=== PATIENT | male | born 2000 | race Caucasian/White ===

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

== ENCOUNTER 2021-11-01 18:25 | Emergency (ER) | payer OTHER, SELFPAY ==
[2021-11-01 18:38] VITALS: BP 100/68; PULSE 112; RESP 17; TEMP 37.1; O2SAT 99
--- NOTE | 2021-11-01 21:14 | ED.DENTAL ---
HPI - Dental/Oral General Chief complaint: Dental/Oral Stated complaint: TOOTHACHE Time Seen by Provider: 11/01/21 20:33 Source: patient Mode of arrival: ambulatory Limitations: no limitations History of Present Illness HPI Narrative: Patient is a 21-year-old male who presents the ED with report of left lower molar dental pain. Patient reports the corner of his L lower molar broke over 1 year ago. He has been having issues with pain and temperature sensitivity since then. Over the last 3 weeks, the pain has become worse. He has been taking ibuprofen at home without much relief. He does have an appointment with a dentist who accepts Medicaid on November 18, 2021. He states the pain became worse tonight which prompted him to come to the ED. He also reports having pain and swelling along left lower gumline. No fever, chills, nausea, vomiting. Related Data Allergies Allergy/AdvReac Type Severity Reaction Status Date / Time No Known Allergies Allergy Verified 11/01/21 18:41 Review of Systems Review of Systems: CONSTITUTIONAL: Denies fever, chills. ENT: Reports dentalgia, temperature sensitivity, gumline pain/swelling. Denies sore throat. GASTROINTESTINAL: Denies nausea, vomiting. All systems reviewed & are unremarkable except as noted in HPI and below PMFSH Past Medical History Medical History No pertinent past medical history Surgical History Surgical History (Updated 11/01/21 @ 21:22 by Felisa Eason PA-C) No pertinent past surgical history Social History Social History (Updated 11/02/21 @ 03:24 by Felisa Eason PA-C) Smoking status: Current every day smoker Exam Narrative: Yeah GENERAL: Well appearing, well-nourished, non-toxic, in no acute distress. HEAD: Normocephalic, atraumatic. THROAT: Pharynx clear, no exudate. MMs moist. Scattered dental caries throughout mouth. Corner of left lower molar, #37, fractured. Mild erythema, TTP, and swelling along left lower gumline. No significant abscess identified. NECK: Supple. No adenopathy, no masses. RESPIRATORY: Airway patent, respirations nonlabored. Clear to auscultation bilaterally, no rales, rhonchi, wheezing. CARDIOVASCULAR: Regular rate and rhythm without murmurs, rubs, or gallops. Radial pulses 2+ and equal bilaterally. MUSCULOSKELETAL: Moves all extremities. Strength/ROM intact without gross deformities. SKIN: Warm, dry, normal color. No rashes. NEURO: A&O X3. Speech clear. Cranial nerves II-XII grossly intact. Steady gait. No ataxic movements. PSYCHIATRIC: Appropriate mood and affect. Normal interaction. Course Vital Signs Vital signs: Vital Signs Temperature 98.7 F 11/01/21 18:38 Pulse Rate 112 H 11/01/21 18:38 Respiratory Rate 17 11/01/21 18:38 Blood Pressure 100/68 11/01/21 18:38 Pulse Oximetry 99 11/01/21 18:38 Temperature 98.7 F 11/01/21 18:38 Pulse Rate 93 11/01/21 21:44 Respiratory Rate 18 11/01/21 21:44 Blood Pressure 117/89 11/01/21 21:44 Pulse Oximetry 100 11/01/21 21:44 MDM - Dental/Oral MDM Narrative Medical decision making narrative: Patient presented to ED with dentalgia. VSS upon arrival, patient slightly tachycardic, likely due to pain. Afebrile. Patient's pain is consistent with dental caries and fractured tooth. There is mild erythema, swelling, and tenderness to palpation of left lower outer gumline, but there is no focal signs of space-occupying abscess to suggest need for imaging. The patient is controlling secretions well without signs of airway compromise. Patient is felt reasonable for outpatient follow-up with dental evaluation. I will send antibiotics to patient's pharmacy due to focal inflammation of L lower outer gumline. I will also send a few [place] for pain. Given a shot of Toradol in the ED as he has to drive home. He has an appointment with a dentist the next few weeks. Advised him to keep this appointment to have tooth pulled. I al
[2021-11-01] MEDS: KETOROLAC (*BKC) 60 MG/2 ML VIAL IM (21:29)
[2021-11-01 21:44] VITALS: BP 117/89; PULSE 93; RESP 18; O2SAT 100
== END 2021-11-01 21:38 | disposition home or self-care (01) ==
PROVIDERS: Emergency Provider General Practice
DX: K08.89 Other specified disorders of teeth and supporting structures (principal); K03.81 Cracked tooth; F17.210 Nicotine dependence, cigarettes, uncomplicated
CPT/HCPCS: 96372; 99283; J1885

== ENCOUNTER 2022-02-14 22:20 | Emergency (ER) | payer OTHER, SELFPAY ==
--- NOTE | ~2022-02-14 | XR_ITS ---
EXAMINATION: XR shoulder RT min 2V DATE: 02/14/2022 23:44 INDICATION: Right shoulder pain. Shoulder dislocation status post reduction. TECHNIQUE: 4 views of right shoulder were obtained. COMPARISON: None. FINDINGS: Bone alignment is normal. No fracture. Joint spaces are normal. IMPRESSION: 1. Normal right shoulder. Reviewed, dictated and finalized at location A. IMPRESSION: 1. Normal right shoulder.
[2022-02-14 22:22] VITALS: BP 124/78; PULSE 118; RESP 20; TEMP 36.9; O2SAT 99
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
[2022-02-14] MEDS: HYDROcodone/acetaminophen (*CRX) 5-325 MG TABLET 1 TAB PO (23:50)
--- NOTE | 2022-02-15 00:02 | PC.NURSE ---
pt declined tdap shot and sling at discharge.
== END 2022-02-15 00:06 | disposition home or self-care (01) ==
PROVIDERS: Emergency Provider Emergency Medicine
DX: S43.004A Unspecified dislocation of right shoulder joint, initial encounter (principal); Y04.0XXA Assault by unarmed brawl or fight, initial encounter; F17.210 Nicotine dependence, cigarettes, uncomplicated
CPT/HCPCS: 23650; 73030; 99285; A9270

== ENCOUNTER 2022-04-19 13:14 | Emergency (ER) | payer OTHER, SELFPAY ==
[2022-04-19 13:18] VITALS: BP 116/72; PULSE 100; RESP 16; TEMP 37.2; O2SAT 100
[2022-04-19 14:12] LABS: Influenza A QL RT-PCR Positive (Negative); Influenza B QL RT-PCR Negative (Negative); SARS-CoV-2 RNA PCR Negative
[2022-04-19] MEDS: ONDANSETRON INJ 4 MG/2 ML VIAL IV PUSH (14:27)
[2022-04-19] MEDS: KETOROLAC 30 MG/ML VIAL (*BKC) IV PUSH (14:27)
[2022-04-19] MEDS: SODIUM CHLORIDE 0.9% IV 1,000 ML 999 ML IV CONT (14:27)
--- NOTE | 2022-04-19 14:35 | ED.URI ---
HPI - URI/Sore Throat General Chief Complaint: Upper Respiratory Infection Stated Complaint: cough with fever that began yesterday Time Seen by Provider: 04/19/22 13:58 Source: patient Mode of arrival: ambulatory Limitations: no limitations History of Present Illness HPI Narrative: Patient is a 21 y/o male who presents to the ED with c/o upper respiratory symptoms. Patient reports he suddenly began feeling unwell around 3 AM this morning. He checked his temperature to be 101 ?F at that time. He also reports having cough, congestion, sore throat, muscle aches, headache, nausea, vomiting. Denies any recent sick contacts that he is aware of. He is not vaccinated for COVID or flu. He took ibuprofen at home approximately 6 hours ago. Denies abdominal pain, chest pain, difficulty breathing. Related Data Allergies Allergy/AdvReac Type Severity Reaction Status Date / Time No Known Allergies Allergy Verified 04/19/22 13:15 Review of Systems Review of Systems: CONSTITUTIONAL: Reports fever, chills, sweats. ENT: Reports rhinorrhea, congestion, sore throat. CARDIOVASCULAR: Denies chest pain. RESPIRATORY: Reports cough. Denies dyspnea. GASTROINTESTINAL: Reports nausea, vomiting. Denies abdominal pain or diarrhea. MUSCULOSKELETAL: Reports myalgias. NEUROLOGIC: Reports MEDRANO. All systems reviewed & are unremarkable except as noted in HPI and below PMFSH Past Medical History Medical History No pertinent past medical history Surgical History Surgical History No pertinent past surgical history Social History Social History Smoking status: Current every day smoker Exam Narrative: GENERAL: Mildly ill appearing, thin, in no acute distress. HEAD: Normocephalic, atraumatic. ENT: PERRLA, EOMI, conjunctiva clear, normal nose, no drainage, mild posterior pharynx erythema, no tonsillar hypertrophy or exudate, uvula midline. NECK: Supple. No adenopathy, no masses. RESPIRATORY: Airway patent, respirations nonlabored. Clear to auscultation bilaterally, no rales, rhonchi, wheezing. CARDIOVASCULAR: Borderline tachycardic with regular rhythm without murmurs, rubs, or gallops. Radial pulses 2+ and equal bilaterally. ABDOMINAL: Soft, nontender, nondistended, no hepatosplenomegaly. Normoactive BS. MUSCULOSKELETAL: Moves all extremities. Strength/ROM intact without gross deformities. SKIN: Warm, dry, mild pallor. No rashes. NEURO: A&O X3. Speech clear. Cranial nerves II-XII grossly intact. Steady gait. No ataxic movements. PSYCHIATRIC: Appropriate mood and affect. Normal interaction. Course Vital Signs Vital signs: Vital Signs Temperature 99 F 04/19/22 13:18 Pulse Rate 100 04/19/22 13:18 Respiratory Rate 16 04/19/22 13:18 Blood Pressure 116/72 04/19/22 13:18 Pulse Oximetry 100 04/19/22 13:18 Oxygen Delivery Room Air 04/19/22 13:18 Temperature 99 F 04/19/22 13:18 Pulse Rate 95 04/19/22 15:24 Respiratory Rate 14 04/19/22 15:24 Blood Pressure 115/70 04/19/22 15:24 Pulse Oximetry 98 04/19/22 15:24 Oxygen Delivery Room Air 04/19/22 13:18 MDM - URI/Sore Throat MDM Narrative Medical decision making narrative: Patient presented to ED with 1 day history of URI symptoms. Patient borderline tachycardic and febrile upon arrival. Appears mildly ill, but nontoxic. No chest pain, difficulty breathing, abdominal pain. Lungs clear on exam. Influenza A testing positive. COVID-negative. Patient feeling much better after fluids, Tylenol, Toradol in the ED. Will be discharged. Discussed management of influenza at home and reasons to return. Patient agrees with plan. Medical Records Attestation: I reviewed the patient's medical records. Lab Data Attestation: I reviewed the patient's lab results. Labs: Lab Results
[2022-04-19 15:24] VITALS: BP 115/70; PULSE 95; RESP 14; O2SAT 98
== END 2022-04-19 15:26 | disposition home or self-care (01) ==
PROVIDERS: Emergency Medicine; Emergency Provider Emergency Medicine
DX: J10.1 Influenza due to other identified influenza virus with other respiratory manifestations (principal); Z20.822 Contact with and (suspected) exposure to COVID-19; Z28.310 Unvaccinated for COVID-19
CPT/HCPCS: 87502; 96361; 96374; 96375; 99284; J0131; J1885; J2405; J7030; U0003; U0005

== ENCOUNTER 2022-04-19 16:17 | Emergency (ER) | payer OTHER, SELFPAY ==
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
[2022-04-19 16:25] VITALS: BP 117/67; PULSE 66; RESP 16; TEMP 37.3; O2SAT 100
== END 2022-04-19 17:20 | disposition home or self-care (01) ==
PROVIDERS: Emergency Provider Nurse Practitioner
DX: M54.50 Low back pain, unspecified (principal); F17.200 Nicotine dependence, unspecified, uncomplicated; V89.2XXA Person injured in unspecified motor-vehicle accident, traffic, initial encounter
CPT/HCPCS: 72100; 99213; G0463

== ENCOUNTER 2022-11-17 09:10 | Emergency (ER) | payer OTHER, SELFPAY ==
--- NOTE | 2022-11-17 09:25 | ED.DENTAL ---
HPI - Dental/Oral General Chief complaint: Dental/Oral Stated complaint: tooth pain Time Seen by Provider: 11/17/22 09:48 Source: patient, RN notes reviewed and old records reviewed Mode of arrival: ambulatory Limitations: no limitations History of Present Illness HPI Narrative: 22-year-old male presents to the [facility] with complaints dental pain to the right lower. Cracked his tooth about 6 months ago. Has had intermittent Patient states that he has an appointment in December with a dentist for removal of the tooth Related Data Home Medications Medication Instructions Recorded Confirmed sertraline 50 mg tablet 50 mg DAILY 04/19/22 11/17/22 Allergies Allergy/AdvReac Type Severity Reaction Status Date / Time cat dander Allergy Unknown Verified 11/17/22 09:42 Review of Systems Review of Systems: All systems reviewed & are unremarkable except as noted in HPI and below Constitutional: Constitutional: Reports no additional constitutional complaints Eyes: Eyes: Reports no additional eye complaints ENT: Reports as per HPI and Reports dental pain Cardiovascular: Cardiovascular: Reports no additional cardiovascular complaints, Denies chest pain and Denies dyspnea Respiratory: Respiratory: Reports no additional respiratory complaints, Denies chest congestion, Denies cough and Denies dyspnea Gastrointestinal: Gastrointestinal: Reports no additional gastrointestinal complaints, Denies abdominal pain, Denies nausea and Denies vomiting Musculoskeletal: Musculoskeletal: Reports no additional musculoskeletal complaints Integumentary/Breasts: Skin/Breast: Reports system reviewed and no additional complaints, except as docu Neurologic: Reports system reviewed and no additional complaints, except as documented Psychiatric: Psychiatric: Reports no additional psychiatric complaints Allergic/Immunologic: Allergic/Immunologic: Reports no additional allergic/immunologic complaints PMFSH Past Medical History Medical History No pertinent past medical history Surgical History Surgical History No pertinent past surgical history Social History Social History Smoking status: Current every day smoker Living arrangements: with family Comments At the time of my signature, I reviewed and agree with the nursing past medical, surgical, social, and family history. There is no relevant family history pertinent to the patient complaint. Exam Const: General: cooperative, healthy appearing, comfortable, no acute distress, well developed, alert and well nourished Nutritional Appearance: well nourished Orientation/consciousness: patient oriented x3 Limitations: no limitations HENMT: Head: normal to inspection Ears: hearing grossly normal bilaterally and external ears normal Face/Nose/Sinus: Normal external nose present, Normal nares present, Normal nasal mucous membranes and turbinates present and normal facial exam Face and sinus: normal facial exam Mouth: Yes Normal oral and palatal mucosa present, Yes lip normal and Yes moist mucous membranes Teeth image: 1. Decayed, caries, fractured tooth Throat: posterior oropharynx normal and uvula midline Eyes: General: appearance normal, both eyes and all related structures Alignment and Position: alignment normal Periorbital: periorbital findings normal Pupils: Equal, round and reactive pupils present EOM: EOMs intact bilaterally Neck: Neck: normal visual inspection, full ROM, no lymphadenopathy and no meningeal signs Chest: Chest palpation & inspection: normal inspection of the chest Resp: Effort & Inspection: normal respiratory effort and able to speak in complete sentences Cardio: Rate: regular rate Rhythm: regular rhythm Back/Spine/Pelvis: Cervical Spine: cervical ROM normal Thoracic/Lumbar Spine: No thor
[2022-11-17 09:41] VITALS: BP 119/62; PULSE 73; RESP 18; TEMP 36.9; O2SAT 100
== END 2022-11-17 10:08 | disposition home or self-care (01) ==
PROVIDERS: Emergency Provider Nurse Practitioner
DX: K02.9 Dental caries, unspecified (principal); K08.89 Other specified disorders of teeth and supporting structures; F17.200 Nicotine dependence, unspecified, uncomplicated
CPT/HCPCS: 99213; G0463

== ENCOUNTER 2023-04-30 16:52 | Emergency (ER) | payer OTHER, SELFPAY ==
[2023-04-30 16:57] VITALS: BP 116/66; PULSE 114; RESP 20; TEMP 37.4; O2SAT 99
[2023-04-30] MEDS: IBUPROFEN 600 MG TABLET PO (17:21)
--- NOTE | 2023-04-30 17:30 | ED.FEVER ---
HPI - Fever General Chief Complaint: Fever Stated Complaint: sore throat Time Seen by Provider: 04/30/23 16:59 Source: patient Mode of arrival: ambulatory Limitations: no limitations History of Present Illness HPI Narrative: Patient is a 22 y/o male who presents to the ED with his S.O. with report of URI sx's. Patient reports symptoms began last night. He complains of sore throat, cough, rhinorrhea, congestion, heavy breathing, subjective fevers, myalgias. He took Ibuprofen for his sx's last night, which did help. Significant other has similar symptoms. Denies SOB, CP. Related Data Allergies Allergy/AdvReac Type Severity Reaction Status Date / Time cat dander Allergy Unknown Verified 04/30/23 16:58 Review of Systems Review of Systems: CONSTITUTIONAL: See HPI. ENT: See HPI. CARDIOVASCULAR: Denies chest pain, palpitations, or edema. RESPIRATORY: Denies cough or dyspnea. GASTROINTESTINAL: Denies abdominal pain, nausea, vomiting. MUSCULOSKELETAL: See HPI. NEUROLOGIC: Denies headache, numbness, or weakness. All systems reviewed & are unremarkable except as noted in HPI and below PMFSH Past Medical History Medical History No pertinent past medical history Surgical History Surgical History No pertinent past surgical history Social History Social History Smoking status: Current every day smoker Living arrangements: with family Exam Narrative: GENERAL: Well appearing, thin, non-toxic, in no acute distress. HEAD: Normocephalic, atraumatic. ENT: Mild posterior pharynx erythema. No tonsillar hypertrophy or exudate. Uvula midline. No stridor. NECK: Supple. No adenopathy, no masses. RESPIRATORY: Airway patent, respirations nonlabored. Clear to auscultation bilaterally, no rales, rhonchi, wheezing. No focal lung sounds. CARDIOVASCULAR: Regular rate and rhythm without murmurs, rubs, or gallops. Radial pulses 2+ and equal bilaterally. MUSCULOSKELETAL: Moves all extremities. No gross deformities. SKIN: Warm, dry, normal color. No rashes. NEURO: A&O X3. Speech clear. Cranial nerves II-XII grossly intact. Steady gait. No ataxic movements. PSYCHIATRIC: Appropriate mood and affect. Normal interaction. Course Vital Signs Vital signs: Vital Signs Temperature 99.4 F 04/30/23 16:57 Pulse Rate 114 H 04/30/23 16:57 Respiratory Rate 20 04/30/23 16:57 Blood Pressure 116/66 04/30/23 16:57 Pulse Oximetry 99 04/30/23 16:57 Temperature 99.4 F 04/30/23 16:57 Pulse Rate 114 H 04/30/23 16:57 Respiratory Rate 20 04/30/23 16:57 Blood Pressure 116/66 04/30/23 16:57 Pulse Oximetry 99 04/30/23 16:57 MDM - Fever MDM Narrative Medical decision making narrative: Patient presented to ED with 1 day history of URI symptoms, significant other with similar symptoms also present in the ED to be seen. Vitals stable upon arrival. Borderline febrile. Given ibuprofen. Patient in no acute distress. COVID, influenza, strep negative. Patient updated on laboratory findings. Discussed likelihood of a viral URI, potentially retesting for COVID in the next couple of days. Discussed management of URI. Discussed return precautions. Discharged in stable condition. Medical Records Attestation: I reviewed the patient's medical records. Lab Data Attestation: I reviewed the patient's lab results. Labs: Lab Results 04/30/23 Range/Units 17:17 Influenza A (RT-PCR) Negative (Negative) Influenza B (RT-PCR) Negative (Negative) SARS-CoV-2 RNA (RT-PCR) Negative (Negative) Group A Strep (PCR) Not detected (Negative) Discharge Plan Discharge Clinical Impression: Upper respiratory infection Qualifiers: URI type: unspecified URI Qualified Code(s): J06.9 - Acute upper respiratory infection, unsp
[2023-04-30 17:56] LABS: Strep Group A RT-PCR NOT DETECTED (Negative)
[2023-04-30 18:04] LABS: Influenza A QL RT-PCR Negative (Negative); Influenza B QL RT-PCR Negative (Negative); SARS-CoV-2 RNA PCR Negative (Negative)
== END 2023-04-30 18:38 | disposition home or self-care (01) ==
PROVIDERS: Emergency Provider Physician Assistant
DX: J06.9 Acute upper respiratory infection, unspecified (principal); Z20.822 Contact with and (suspected) exposure to COVID-19; F17.200 Nicotine dependence, unspecified, uncomplicated
CPT/HCPCS: 87636; 87651; 99283; A9270

== ENCOUNTER 2024-05-14 19:44 | Emergency (ER) | payer SELFPAY ==
[2024-05-14 20:02] VITALS: BP 117/65; PULSE 82; RESP 20; TEMP 37.1; O2SAT 100
--- NOTE | 2024-05-14 20:08 | ED_ITS ---
HPI - URI/Sore Throat General Chief Complaint: Upper Respiratory Infection Stated Complaint: sore throat Time Seen by Provider: 05/14/24 20:08 Source: patient Mode of arrival: ambulatory Limitations: no limitations History of Present Illness HPI Narrative: 23-year-old male presents with complaint of nasal congestion, cough, sore throat, fatigue since yesterday evening. Reports chills and body aches. Has not checked for fever. patient states I think I have flu or strep . No chest pain or shortness of breath. All systems reviewed and negative except as noted above. Related Data Allergies Allergy/AdvReac Type Severity Reaction Status Date / Time cat dander Allergy Unknown Verified 04/30/23 16:58 Review of Systems Review of Systems: CONSTITUTIONAL: Denies fever, chills, or sweats. EYES: Denies visual changes, redness, or discharge. ENT: Reports rhinorrhea, congestion, sore throat. Denies otalgia. CARDIOVASCULAR: Denies chest pain, palpitations, or edema. RESPIRATORY: reports cough. Denies dyspnea. GASTROINTESTINAL: Denies abdominal pain, nausea, vomiting, or diarrhea. GENITOURINARY: Denies dysuria or hematuria. SKIN: Denies rash or itching. MUSCULOSKELETAL: Denies back pain, joint pain, or myalgia. NEUROLOGIC: Denies headache, numbness, or weakness. PSYCHIATRIC: Denies anxiety or depression. All other systems reviewed are negative, except as documented in HPI. PMFSH Past Medical History Medical History No pertinent past medical history Surgical History Surgical History No pertinent past surgical history Social History Social History Smoking status: Current every day smoker Living arrangements: with family Comments At time of signature, agree with nursing past medical, surgical, social and family history. There is no relevant family history pertinent to the presenting complaint. Exam Narrative: GENERAL: This is a well-nourished, well-developed patient, in no apparent distress. HEAD: normocephalic, atraumatic. EYES: PERRL. Sclera clear/white. Vision is grossly intact. EARS: External ears normal, auditory canals clear and without drainage, TMs normal without perforation. Hearing grossly intact. NOSE: External nose normal with clear nasal drainage THROAT: Mucous membranes moist, mild erythema with postnasal drainage NECK: Neck supple, non-tender without lymphadenopathy, masses or thyromegaly. CARDIOVASCULAR: Regular rate and rhythm without murmurs, gallops, or rubs. RESPIRATORY: Clear to auscultation. Breath sounds equal bilaterally. No wheezes, rales, or rhonchi. SKIN: warm, Dry, intact with no suspicious lesions or rash, good texture and turgor. NEURO: awake, alert, and oriented to person, place and time. There were no obvious focal neurologic abnormalities. EXTREMITIES: No joint tenderness, effusion, or edema noted. Course Course Level of Care: Express Care Visit Vital Signs Vital signs: Vital Signs Temperature 37.1 C 05/14/24 20:02 Pulse Rate 82 05/14/24 20:02 Respiratory Rate 20 05/14/24 20:02 Blood Pressure 117/65 05/14/24 20:02 Pulse Oximetry 100 05/14/24 20:02 Oxygen Delivery Room Air 05/14/24 20:02 Temperature 37.1 C 05/14/24 20:02 Pulse Rate 82 05/14/24 20:02 Respiratory Rate 20 05/14/24 20:02 Blood Pressure 117/65 05/14/24 20:02 Pulse Oximetry 100 05/14/24 20:02 Oxygen Delivery Room Air 05/14/24 20:02 reviewed MDM - URI/Sore Throat MDM Narrative Medical decision making narrative: Patient is aware of diagnosis, understands and agrees to treatment plan. Anticipatory guidance given. Patient agrees to follow-up as directed and is aware of reasons to seek care at the emergency department. Portions of this record may have been created with voice recognition software Negative COVID, influenza and strep. Patient is well-appearing. Lungs clear to auscultation. Nontoxic. Recommend he take ofwi-[id number] medications to treat viral symptoms. Differential Diagnosis Differential diagnosis: Likely upper respiratory infection, sinusitis, viral infection, influenza and pharyngitis Lab Data Labs: Lab Results 05/14/24 05/14/24 Range/Units 20:26 20:33 POC Influenza A Ag Negative (Negative) POC Influenza B Ag Negative (Negative) POC SARS CoV-2 Ag Negative (Negative) POC Grp A Strep Screen Negative (Negative) Discharge Plan Discharge Clinical Impression: Viral upper respiratory tract infection with cough Patient Disposition: Home, Self-Care Condition: Stable Instructions: Upper Respiratory Infection (ED) Additional Instructions: your COVID, influenza and strep test were negative today. Your symptoms are viral and may last 7-10 days. Taking lsxg-[id number] medication to treat her symptoms such as DayQuil NyQuil cold and flu. Drink at least 64 oz of water a day. Follow-up with your primary care physician if symptoms are not improving. Follow-up/Referrals: PHYSICIAN,CYBER SECURITY SYSTEMS ENGINEER [Primary Care Provider] - Time of Disposition: 20:25
[2024-05-14 20:28] LABS: EDSTREPNEGPOS1 Negative (Negative)
[2024-05-14 20:35] LABS: EDCOVIDSCREEN Negative (Negative); EDINFLUASCREEN Negative (Negative); EDINFLUBSCREEN Negative (Negative)
== END 2024-05-14 20:32 | disposition home or self-care (01) ==
PROVIDERS: Emergency Provider Nurse Practitioner Family
DX: J06.9 Acute upper respiratory infection, unspecified (principal); B97.89 Other viral agents as the cause of diseases classified elsewhere; Z20.822 Contact with and (suspected) exposure to COVID-19
CPT/HCPCS: 87081; 87426; 87804; 87880; 99213; G0463

== ENCOUNTER 2025-04-19 14:28 | Emergency (ER) | payer OTHER, SELFPAY ==
--- OUTSIDE RECORDS SUMMARY | 2025-04-19 14:32 | XMS_ITS | Clinical Summary ---
Author Organization [facility] Address [address] [place] [address] Care Team Providers Care Space Engineer Name Role Phone None, Provider MD Primary Care Provider Unavaila ble Allergies No known active allergies Medications famotidine (PEPCID) 20 MG tablet Take 1 tablet (20 mg total) by mouth 2 (two) times daily. 20 tablet 09/07/2024 Active guaiFENesin-code ine (GUAIFENESIN AC) 100-10 MG/5ML syrupIndications :Cough Take 5 mLs by mouth every 4 (four) hours as needed for Cough. Indications : Cough 150 mL 09/07/2024 Active Social History Tobacco Use Types Packs/Day Years Used Date Smoking Tobacco: Never Assessed Sex and Gender Information Value Date Recorded Sex Assigned at Male 09/07/2024 5:52 PM CDT Legal Sex Male 4:16 PM CDT Gender Identity Not on file Sexual Orientation Not on file Last Filed Vital Signs Vital Sign Reading Time Taken Comments Blood Pressure 117/69 09/07/2024 6:00 PM CDT Pulse 80 09/07/2024 6:00 PM CDT Temperature 36.9 C (98.4 F) 09/07/2024 6:00 PM CDT Respiratory Rate 16 09/07/2024 6:00 PM CDT Oxygen Saturation 99% 09/07/2024 6:00 PM CDT Inhaled Oxygen Concentration - - Weight 56.7 kg (125 lb) 09/07/2024 4:28 PM CDT Height 170.2 cm (5' 7) 09/07/2024 4:28 PM CDT Body Mass Index 19.58 09/07/2024 4:28 PM CDT Plan of Treatment Health Maintenance Due Date Last Done Comments Annual Physical 2004 HPV Vaccines (1 - Male 3-dos e series) 2016 Meningococcal B Vaccine (1 o f 2 - Standard) 2017 Hepatitis C 2019 DTaP, Tdap and Td Vaccines ( 4 - Tdap) 2020 03/27/2002, 2001, 2001 COVID-19 Vaccine (1 - 2024-2 6 season) 2025 Influenza Adult (#1) 2025 Hepatitis B Vaccines Completed 03/27/2002, 2001, 2001 Pneumococcal Vaccine: Pediatrics (0 to 5 Years) and At-Risk Patients (6 to 49 Years) Aged Out 03/27/2002, 2001 No longer eligible based on patient's age to complete this topic Hepatitis A Vaccines Aged Out No long er eligible based on patient's age to complete this topic Meningococcal Vaccine Aged Out No davy ashtyn eligible based on patient's age to complete this topic RSV Immunizations Under 20 Months Aged Out No longer eligible b ased on patient's age to complete this topic Insurance MEDICAID Care Teams Space Engineer Relationship Specialty Start Date End Date None, Provider, MD PCP - General UNKNOWN PHYSICIAN SPECIALTY 09/07/24
--- NOTE | 2025-04-19 14:37 | ED_ITS ---
HPI - General Adult General Chief complaint: Upper Respiratory Infection Stated complaint: Sore throat Time Seen by Provider: 04/19/25 14:37 Source: patient Mode of arrival: ambulatory Limitations: no limitations History of Present Illness HPI narrative: 24-year-old male patient presents to the [facility] with complaints of a sore throat for the past 1-2 days. Patient denies any fevers that he is aware of. Denies any chest pain shortness of breath abdominal pain nausea vomiting or diarrhea. Patient states he has been taking some [id number] Mucinex for symptoms. Related Data Home Medications ?Medication ?Instructions ?Recorded ?Confirmed ?Last Taken ?Type No Home Medications 04/19/25 04/19/25 U nknown History Allergies Allergy/AdvReac Type Severity Reaction Status Date / Time No Known Allergies Allergy Verified 04/19/25 14:31 Review of Systems Review of Systems: CONSTITUTIONAL: Denies fever, chills, or sweats. EYES: Denies visual changes, redness, or discharge. ENT: positive rhinorrhea, congestion, Positive sore throat, or otalgia. CARDIOVASCULAR: Denies chest pain, palpitations, or edema. RESPIRATORY: Denies cough or dyspnea. GASTROINTESTINAL: Denies abdominal pain, nausea, vomiting, or diarrhea. GENITOURINARY: Denies dysuria or hematuria. SKIN: Denies rash or itching. MUSCULOSKELETAL: Denies back pain, joint pain, or myalgia. NEUROLOGIC: Denies headache, numbness, or weakness. PSYCHIATRIC: Denies anxiety or depression. PMFSH Past Medical History Medical History No pertinent past medical history Surgical History Surgical History No pertinent past surgical history Social History Social History Smoking status: Current every day smoker Living arrangements: with family Comments At the time of my signature I agree with nursing past medical history, surgical, social, and family history. There is no relevant family history pertinent to the presenting complaint. Exam Narrative: GENERAL: Well-appearing, well-nourished, and in no acute distress. HEAD: Normocephalic, atraumatic. EYES: PERRLA and EOMI. ENT: Nares with erythema edema noted bilaterally, no rhinorrhea or epistaxis. Mucous membranes moist. posterior pharynx with some postnasal drip noted but no tonsillar enlargement no exudates or lesions present. Bilateral TMs are clear no erythema or foreign bodies canal. NECK: Supple. No lymphadenopathy CHEST: Clear to auscultation. No respiratory distress. HEART: Regular rate and rhythm. No murmur heard. Normal peripheral pulses. ABDOMEN: Soft, nontender, nondistended, normal active bowel sounds. EXTREMITIES: Normal range of motion. No edema. SKIN: Warm, dry, no rash. NEURO: No focal deficits. Alert and oriented x3. Course Course Level of Care: Express Care Visit Vital Signs Vital signs: Vital Signs Temperature 37.1 C 04/19/25 14:51 Pulse Rate 95 04/19/25 14:51 Respiratory Rate 18 04/19/25 14:51 Blood Pressure 148/79 H 04/19/25 14:51 Pulse Oximetry 98 04/19/25 14:51 Oxygen Delivery Room Air 04/19/25 14:51 Temperature 37.1 C 04/19/25 14:51 Pulse Rate 95 04/19/25 14:51 Respiratory Rate 18 04/19/25 14:51 Blood Pressure 148/79 H 04/19/25 14:51 Pulse Oximetry 98 04/19/25 14:51 Oxygen Delivery Room Air 04/19/25 14:51 Vital signs reviewed. The patient has been informed that they may have pre- hypertension or Hypertension based on a BP reading in the department. I recommend that the patient call the primary care provider listed on their discharge instructions or a physician of their choice this week to arrange follow up for further evaluation of possible pre-hypertension or Hypertension Medical Decision Making MDM Narrative Medical decision making narrative: Discussed with patient's point of care test for strep is negative today. Discussed with patient that we will send the swab to the lab for culture if the culture comes back positive we will call him in antibiotics at that time. Discussed with patient to continue using aqwb-zef-eawmnna medications for symptoms may also recommend warm salt water gargles hot tea and honey to help soothe throat symptoms. Patient verbalized understanding denies any other questions or concerns at this time. Differential Diagnosis Differential Diagnosis: Differential diagnosis: Viral pharyngitis, pharyngitis, group A strep, infectious mononucleosis, gonococcal pharyngitis, exudative pharyngitis, oral candidiasis. Chronic allergies, postnasal drip, GERD, abscess formation, but glottitis, retropharyngeal abscess formation, or airway obstruction. Vital Signs Vital Signs: Vital Signs Temperature 37.1 C 04/19/25 14:51 Pulse Rate 95 04/19/25 14:51 Respiratory Rate 18 04/19/25 14:51 Blood Pressure 148/79 H 04/19/25 14:51 Pulse Oximetry 98 04/19/25 14:51 Oxygen Delivery Room Air 04/19/25 14:51 Temperature 37.1 C 04/19/25 14:51 Pulse Rate 95 04/19/25 14:51 Respiratory Rate 18 04/19/25 14:51 Blood Pressure 148/79 H 04/19/25 14:51 Pulse Oximetry 98 04/19/25 14:51 Oxygen Delivery Room Air 04/19/25 14:51 Lab Data Labs: Lab Results 04/19/25 Range/Units 14:55 POC Grp A Strep Screen Negative (Negative) Critical Care Time Critical Care Time Critical Care Time: No Discharge Plan Discharge Clinical Impression: Acute viral pharyngitis Patient Disposition: Home Condition: Stable Instructions: Antibiotic Form, Pharyngitis (ED) Additional Instructions: A sore throat can be caused by an infection from a virus or bacteria. Sore throat can also be caused by postnasal drip, allergies, and exposure to smoke. A viral sore throat last 3-4 days and cannot be treated with antibiotics. One type of sore throat virus, infectious mononucleosis (mono), can last for 3 weeks and older children. The germs that cause these infections are contagious and can be spread by coughing or sharing drinks or utensils. Contact her primary care physician or go to the ER if: Your trouble breathing or swallowing because her throat is swollen or sore. You're drooling because it hurts too much to swallow. You're painful lump in your throat go away after 5 days. You're fever is higher than 10 2??F or last longer than 3 days. You have confusion. You are blood in your throat. You're sore throat should feel better within 3-5 days without treatment if it is caused by virus. You may need the following: Ibuprofen or Tylenol as needed for pain or fever Gargle warm salt water Drink more liquids, cold or warm drinks may help soothe her throat. Humidifier in your room. Cough drops, ice, soft foods, or popsicles may help soothe her throat. A spoonful of honey could help with inflammation and soothe her throat. Wash her hands with soap and water, do not share food or drinks, throat away her toothbrush after 72 hours. Patient Language: Ug[place] Prescriptions: No Action No Home Medications Follow-up/Referrals: Herbert Soni MD [Primary Care Provider, Family Practice] Time of Disposition: 15:30
[2025-04-19 14:51] VITALS: BP 148/79; PULSE 95; RESP 18; TEMP 37.1; O2SAT 98
[2025-04-19 14:57] LABS: EDSTREPNEGPOS1 Negative (Negative)
== END 2025-04-19 15:32 | disposition home or self-care (01) ==
PROVIDERS: Emergency Provider Nurse Practitioner Family; PCP Family Medicine
DX: J02.8 Acute pharyngitis due to other specified organisms (principal); F17.200 Nicotine dependence, unspecified, uncomplicated
CPT/HCPCS: 87081; 87880; 99213; G0463